=== PATIENT | female | born 1985 | race Caucasian/White ===

== ENCOUNTER 2019-06-22 03:06 | Emergency (ER) | payer SELFPAY ==
[2019-06-22] MEDS ORDERED: KETOROLAC TROMETHAMINE INJ/PF 30 MG/1 ML SDV IV ONE (04:00)
--- NOTE | 2019-06-22 04:03 | ER Document Report ---
ED General - General Chief Complaint: Chest Pain Stated Complaint: CHEST PAIN Time Seen by Provider: 06/22/19 03:51 Primary Care Provider: NICOLE BARBOZA MD [ACTIVE STAFF] - Follow up as needed TRAVEL OUTSIDE OF THE [place] IN LAST 30 DAYS: No - HPI Notes: Patient is a 34-year-old female presents emergency department for evaluation of left-sided chest pain. She got up to go to the bathroom. She came back from the bathroom, stress, sudden onset left-sided chest pain. Was sharp. She states she felt very short of breath. She states that her left arm went numb with this. She states her symptoms lasted for about an hour, they have improved significantly. She denies any associated nausea, diaphoresis, near-syncope. - Related Data Allergies/Adverse Reactions: Sulfa (Sulfonamide Antibiotics) Allergy (Verified 10/07/14 07:07) Home Medications: Tylenol as needed Past Medical History - General Information source: Patient - Social History Smoking Status: Never Smoker Drug Abuse: None Family History: Reviewed & Not Pertinent Patient has suicidal ideation: No Patient has homicidal ideation: No Pulmonary Medical History: Denies: Hx Tuberculosis - Immunizations Hx Diphtheria, Pertussis, Tetanus Vaccination: Yes - 02/05/13 Review of Systems - Review of Systems Constitutional: No symptoms reported EENT: No symptoms reported Cardiovascular: See HPI Respiratory: See HPI Gastrointestinal: No symptoms reported Genitourinary: No symptoms reported Musculoskeletal: See HPI Skin: No symptoms reported Neurological/Psychological: No symptoms reported Physical Exam - Vital signs Vitals: Temp Pulse Resp BP Pulse Ox 97.6 F 66 18 115/76 100 06/22/19 03:16 06/22/19 03:16 06/22/19 03:16 06/22/19 03:16 06/22/19 03:16 - Notes Notes: Vital signs reviewed, please refer to chart. Head is normocephalic, atraumatic. Pupils equal round, reactive to light. Neck is supple without meningismus. Heart is regular rate and rhythm. Lungs are clear to auscultation bilaterally. No obvious abnormality to inspection of the chest wall. Patient is markedly tender to palpation at approximately ribs 4 through 5 on the left, just lateral to the mid clavicular line. Abdomen is soft, nontender, normoactive bowel sounds throughout. Extremities without cyanosis, clubbing. Posterior calves are nontender. Peripheral pulses are equal. Skin is warm and dry. Patient is awake, alert, neurological exam is nonfocal. Course - Re-evaluation Re-evalutation: 06/22/19 05:16 Patient presents emergency department for evaluation of a sharp left-sided chest pain. It happened with motion. It is worsened by movement. She has no risk factors for PE, no risk factors for cardiac disease. She is not tachycardic. Her vital signs are stable. She is a treated with an anti-inflammatory with a mild improvement in her symptoms. At this point I will treat her conservatively for chest wall pain. She is to follow-up with her primary care provider, return to the ED with worsening. She is amenable to this plan. - Vital Signs Vital signs: Temp Pulse Resp BP Pulse Ox 97.6 F 66 12 104/66 97 06/22/19 03:16 06/22/19 03:16 06/22/19 04:03 06/22/19 04:03 06/22/19 04:03 - Laboratory Result Diagrams: 06/22/19 03:45 06/22/19 03:45 Laboratory results interpreted by me: 06/22/19 06/22/19 03:45 03:45 RDW 14.1 H Glucose 128 H - Diagnostic Test Radiology reviewed: Image reviewed, Reports reviewed Radiology results interpreted by me: 06/22/19 05:16 Chest X-Ray 06/22/19 03:59 IMPRESSION: Clear lungs. Discharge - Discharge Clinical Impression: Chest wall pain Condition: Stable Disposition: HOME, SELF-CARE Instructions: Anti-Inflammatory Medication ([facility]), Chest Wall Pain ([facility]) Additional Instructions: Moist heat to the painful area. Take medications as prescribed, with food. Follow-up with your doctor in 1 to 2 weeks. Return to the emergency department with worsening or new concerning symptoms of any sort. Referrals: NICOLE BARBOZA MD [ACTIVE STAFF] - Follow up as needed
[2019-06-22 04:21] LABS: ABSOLUTE EOSINOPHILS # (AUTO) 0.1 10^3/uL (0.0-0.6); ABSOLUTE LYMPHOCYTES (AUTO) 2.4 10^3/uL (0.5-4.7); ABSOLUTE MONOCYTES (AUTO) 0.5 10^3/uL (0.1-1.4); ABSOLUTE NEUT (AUTO) 2.9 10^3/uL (1.7-8.2); BASOPHILS % (AUTO) 0.5 % (0-2); EOSINOPHILS % (AUTO) 1.4 % (0-6); HEMATOCRIT 38.7 % (36.0-47.0); HEMOGLOBIN 12.8 g/dL (12.0-15.5); LYMPHOCYTES % (AUTO) 40.3 % (13-45); MEAN CORPUSCULAR HEMOGLOBIN 28.9 pg (27.0-33.4); MEAN CORPUSCULAR HGB CONC 33.2 g/dL (32.0-36.0); MEAN CORPUSCULAR VOLUME 87 fl (80-97); PLATELET COUNT 212 10^3/uL (150-450); RED BLOOD COUNT 4.45 10^6/uL (3.72-5.28); RED CELL DISTRIBUTION WIDTH 14.1 % (11.5-14.0); SEGMENTED NEUTROPHILS % (AUTO) 49.8 % (42-78); TOTAL CELLS COUNTED % (AUTO) 100 %; WHITE BLOOD COUNT 5.9 10^3/uL (4.0-10.5)
[2019-06-22 04:28] VITALS: BP 104/66
[2019-06-22 04:34] LABS: ALBUMIN 4.5 g/dL (3.5-5.0); ALKALINE PHOSPHATASE 46 U/L (38-126); ANION GAP 11 (5-19); ASPARTATE AMINO TRANSFERASE 20 U/L (14-36); BILIRUBIN,DIRECT 0.1 mg/dL (0.0-0.4); BILIRUBIN,TOTAL 1.2 mg/dL (0.2-1.3); BLOOD UREA NITROGEN 12 mg/dL (7-20); CALCIUM 9.5 mg/dL (8.4-10.2); CARBON DIOXIDE 27 mmol/L (22-30); CHLORIDE 106 mmol/L (98-107); CREATINE KINASE 69 U/L (30-135); GLUCOSE 128 mg/dL (75-110); POTASSIUM 3.9 mmol/L (3.6-5.0); TOTAL PROTEIN 7.2 g/dL (6.3-8.2)
[2019-06-22 04:45] LABS: CREATINE KINASE MB 0.46 ng/mL (<4.55)
[2019-06-22 04:52] LABS: TROPONIN I < 0.012 ng/mL
--- NOTE | 2019-06-22 05:05 | RADIOLOGY REPORT (SQ) ---
CLINICAL HISTORY: chest pain COMPARISON: None. TECHNIQUE: XR CHEST 2 VIEWS 06/22/2019 3:59 AM [employer] FINDINGS: Cardiac silhouette is normal in size. Lungs are clear without consolidation, atelectasis, mass or edema. There is no pleural effusion. There is no pneumothorax. There are no acute osseous findings. IMPRESSION: Clear lungs.
--- NOTE | 2019-06-22 08:09 | EKG REPORT ---
SEVERITY:- NORMAL ECG - SINUS RHYTHM : Confirmed by: Gatito Vale MD 22-Jun-2019 08:08:30
== END 2019-06-22 05:49 | disposition home or self-care (01) ==
LOC: ER 03:06
DX: R07.89 Other chest pain (principal); R06.02 Shortness of breath; Z88.2 Allergy status to sulfonamides
CPT/HCPCS: 93005; 99285; 96374; 36415; 82553; 82550; 84703; 85025; 80053; 84484; 71046; 93010; J1885